=== PATIENT | male | born 1955 | race Caucasian/White ===

== ENCOUNTER → 2020-06-04 | Day surgery (SDC) | payer OTHER ==
[~2020-06-04] MED LIST: BEVESPI AEROS10.7 GM INH; CARVEDILOL3.125 MG PO; LISINOPRIL 20MG20 MG PO; MELOXICAM15 MG PO; PROAIR HFA8.5 GM INH; SODIUM CHLORIDE1 GM PO
--- NOTE | 2020-06-04 08:45 | NUR ---
DR CARBAJAL AT BEDSIDE SPEEAKING TO PT, CASE CANCELLED
== END | disposition home or self-care (01) ==
LOC: FAS 07:56
DX: R93.5 Abnormal findings on diagnostic imaging of other abdominal regions, including retroperitoneum (principal); J43.9 Emphysema, unspecified; I10 Essential (primary) hypertension; I70.0 Atherosclerosis of aorta; I44.7 Left bundle-branch block, unspecified; I42.8 Other cardiomyopathies; Z53.9 Procedure and treatment not carried out, unspecified reason; Z87.891 Personal history of nicotine dependence; Z79.899 Other long term (current) drug therapy; Z91.030 Bee allergy status
CPT/HCPCS: J7120